=== PATIENT | male | born 1995 | race Caucasian/White ===

== ENCOUNTER 2018-08-14 15:24 | Outpatient (REF) | payer OTHER, SELFPAY ==
--- NOTE | 2018-08-14 12:35 | SOFT_PTH ---
PATIENT: Ramo Oro LOC: [facility] U#:[id number] AGE/SX: 23/M ROOM: RE08/14/[address]: Alicia Harris MD : 1995 BED: DIS: 08/14/2018 SPEC #: [id number] RECD: 08/14/18 16:12 STATUS: ERWIN REMilagro #: [id number] DANISHA: 08/14/18 12:[address]: Alicia Harris DEPT: Surgical Specimen RECD BY: Li Mina ENTERED: 08/14/18 16:14 SP TYPE: SOFT OTHR DR: No Local Tissues: 1 - SOFT TISSUE MISC (INC. LIPOMA) 2 - SOFT TISSUE MISC (INC. LIPOMA) 3 - SOFT TISSUE MISC (INC. LIPOMA) Procedures: GROSS AND MICRO LEVEL 3 Comments: [id number]
== END 2018-08-14 15:44 ==
LOC: LBN 15:24
PROVIDERS: Visit Provider Surgery
DX: D17.21 Benign lipomatous neoplasm of skin and subcutaneous tissue of right arm (principal); D17.1 Benign lipomatous neoplasm of skin and subcutaneous tissue of trunk
CPT/HCPCS: 88304

== ENCOUNTER → 2023-05-28 13:15 | Outpatient (CLI) | payer OTHER, SELFPAY ==
--- NOTE | 2023-05-28 11:15 | DI.RAD_ITS ---
Exam(s) XR SHOULDER LT COMPLETE 2+V EXAM: XR SHOULDER LT COMPLETE 2+V CLINICAL HISTORY: Pain in left shoulder M25.512;fall Skiing. TECHNIQUE: 2D digital imaging was performed. COMPARISON: No exams were available for comparison FINDINGS: Four views No evidence of fracture or dislocation and there are no degenerative changes in the glenohumeral join t nor in the AC joint. Subacromial space exhibits normal height and no calcifications are seen in th e subacromial space. Small bony excrescence off the inferior aspect of the clavicle is most probably within the origin of the coracoid clavicular ligament. Bone density normal. No osseous lesions. No evidence of os acromiale. IMPRESSION: No acute osseous findings in the shoulder. DATA REPOSITORY: RADIATION DOSE DELIVERED:
--- NOTE | 2023-05-28 11:21 | DI.RAD_ITS ---
Exam(s) XR THUMB RT EXAM: XR THUMB RT CLINICAL HISTORY: Pain in right thumb M79.644,fall Skiing. TECHNIQUE: 2D digital imaging was performed. COMPARISON: No exams were available for comparison FINDINGS: 3 views No evidence of fracture or dislocation. No degenerative changes. There appears to be some soft tiss ue swelling in the region of the metacarpophalangeal joint. No osseous lesions nor erosions. Bone d ensity normal. There is no radiopaque foreign body. First carpometacarpal joint is also unremarkabl e as is the interphalangeal joint of the thumb. IMPRESSION: Mild soft tissue swelling dorsal to the thumb MCP joint. No osseous findings. DATA REPOSITORY: RADIATION DOSE DELIVERED:
== END ==
PROVIDERS: Visit Provider Physician Assistant Medical
DX: M79.644 Pain in right finger(s) (principal); R22.31 Localized swelling, mass and lump, right upper limb; M25.512 Pain in left shoulder
CPT/HCPCS: 73030; 73140